=== PATIENT | female | born 1990 | race Hispanic/Latino ===

== ENCOUNTER 2018-04-14 15:38 | Emergency (ER) | payer BC ==
[2018-04-14 16:08] VITALS: BP 122/75; PULSE 90; RESP 18; TEMP 98.1; O2SAT 100
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
== END 2018-04-14 16:35 | disposition home or self-care (01) ==
LOC: C.ER 15:38
DX: S60.512A Abrasion of left hand, initial encounter (principal); S60.511A Abrasion of right hand, initial encounter; S00.81XA Abrasion of other part of head, initial encounter; S39.012A Strain of muscle, fascia and tendon of lower back, initial encounter; Y09 Assault by unspecified means